=== PATIENT | female | born 1970 | race Caucasian/White ===

== ENCOUNTER 2017-02-05 10:08 | Inpatient (IN) ==
[2017-02-05] MEDS ORDERED: ONDANSETRON 4 MG/2 ML VIAL IV STA (10:41)
[2017-02-05] MEDS ORDERED: PANTOPRAZOLE 40 MG VIAL IV STA (10:41)
[2017-02-05] MEDS ORDERED: SODIUM CHLORIDE 0.9% 500 ML IV STA (10:41)
[2017-02-05] MEDS ORDERED: HYDROmorphone 2 MG/1 ML VIAL IV STA ×2 (10:41→13:33)
[2017-02-05] MEDS ORDERED: ONDANSETRON 4 MG/2 ML VIAL ONE (10:49)
[2017-02-05] MEDS ORDERED: HYDROmorphone 2 MG/1 ML VIAL ONE ×2 (10:50→13:27)
[2017-02-05 10:59] LABS: Basophils # 0.1 10*3/uL (0.0-0.2); Basophils % 0.4 % (0.0-0.8); Eosinophils # 0.1 10*3/uL (0.0-0.87); Eosinophils % 1.1 % (0.00-10.9); Hematocrit 42.8 VOL% (35.7-47.0); Hemoglobin 14.3 GM/DL (12.0-16.0); Immature Granulocytes % 0.4 %; Immature Granulocytes Absolute 0.05 #; Lymphocytes # 2.2 10*3/uL (1.4-4.0); Lymphocytes % 18.5 % (21.3-54.2); Mean Corpuscular HGB Conc 33.4 GM/DL (32-36); Mean Corpuscular Hemoglobin 28 PG (27-34); Mean Corpuscular Volume 82.9 FL (87-102); Mean Platelet Volume 10.7 FL (9.6-12.0); Monocytes # 0.5 10*3/uL (0.11-0.8); Monocytes % 4.2 % (1.7-12.7); Neutrophils # 8.9 10*3/uL (1.4-7.4); Neutrophils % 75.4 % (38.7-73.9); Platelet Count 303 T/CUMM (130-400); Red Blood Count 5.16 MC/CUMM (3.8-5.5); Red Cell Distribution Width 12.8 % (9.3-17.3); White Blood Count 11.8 T/CUMM (4-12)
[2017-02-05] MEDS ORDERED: PANTOPRAZOLE 40 MG VIAL IV ONE (11:13)
[2017-02-05 11:31] LABS: Lactic Acid 1.3 MMOL/L (0.4-2.0)
[2017-02-05 11:57] LABS: Alanine Aminotransferase 41 U/L (13-56); Albumin 3.9 G/DL (3.4-5.0); Alkaline Phosphatase 85 U/L (45-117); Amylase 24 U/L (25-115); Aspartate Amino Transferase 30 U/L (0-37); Blood Urea Nitrogen 8 MG/DL (7-18); Calcium 9.8 MG/DL (8.5-10.1); Glucose 118 MG/DL (74-106); Magnesium 1.9 MG/DL (1.8-2.4); Osmolality,Calculated 275.5 MOS/KG (273-304); Potassium 3.9 MMOL/L (3.5-5.1); Sodium 139 MMOL/L (136-145); Total Protein 7.5 G/DL (6.4-8.3); Troponin I Only < 0.015 NG/ML (0.00-0.045)
[2017-02-05] MEDS ORDERED: ACETAMINOPHEN 325 MG TABLET PO PRN (14:19)
[2017-02-05] MEDS ORDERED: INFLUENZA VIRUS VACCINE 0.5 ML SYRINGE IM ONE (15:03)
[2017-02-05] MEDS: MORPHINE 2 MG/1 ML SYRINGE IV PRN ×2 (17:28→21:15)
[2017-02-05] MEDS: ONDANSETRON 4 MG/2 ML VIAL IV PRN (17:29)
[2017-02-05] MEDS: LACTATED RINGERS 1,000 ML IV SCH (17:43)
[2017-02-05 21:26] LABS: Apearance,Urine CLEAR (Clear); Bacteria,Urine Occasional /HPF (Few); Bilirubin,Urine Negative (Negative); Blood, Urine Negative (Negative); Glucose,Urine (UA) Negative (Negative); Ketones,Urine Negative (Negative); Nitrite,Urine Negative (Negative); Protein,Urine Negative; RBC,Urine <1 /HPF (0-4); Squamous Epithelial Cell,Urine Occasional /HPF (0-10); Urine Color Straw (Yellow); Urine Specific Gravity 1.006 (1.001-1.035); Urine Urobilinogen < 2.0 EU/DL (0.2-1.0); WBC,Urine 2 /HPF (0-6)
[2017-02-06] MEDS: LACTATED RINGERS 1,000 ML IV SCH ×4 (01:24→16:50)
[2017-02-06 08:06] LABS: Calcium 8.8 MG/DL (8.5-10.1)
[2017-02-06 08:07] LABS: Osmolality,Calculated 280.1 MOS/KG (273-304); Potassium 3.8 MMOL/L (3.5-5.1)
[2017-02-06] MEDS: PANTOPRAZOLE 40 MG TABLET PO SCH (13:55)
[2017-02-06] MEDS: MORPHINE 2 MG/1 ML SYRINGE IV PRN ×2 (16:05→20:43)
[2017-02-06] MEDS: ONDANSETRON 4 MG/2 ML VIAL IV PRN (16:06)
[2017-02-06] MEDS: GABAPENTIN 100 MG CAPSULE PO SCH (20:37)
[2017-02-06] MEDS: DEXT 5% NACL 0.45% KCL 20 MEQ 20 MEQ/1,000 ML BAG IV SCH (20:44)
[2017-02-07] MEDS: MORPHINE 2 MG/1 ML SYRINGE IV PRN (02:32)
[2017-02-07] MEDS: DEXT 5% NACL 0.45% KCL 20 MEQ 20 MEQ/1,000 ML BAG IV SCH ×2 (04:20→09:12)
[2017-02-07] MEDS ORDERED: FAMOTIDINE 20 MG TABLET PO ONE (05:32)
[2017-02-07] MEDS ORDERED: DIAZEPAM 5 MG TABLET PO ONE (05:32)
[2017-02-07] MEDS ORDERED: cefOXitin 2,000 MG in SYRINGE 1 EACH IV ONE (06:00)
[2017-02-07 06:22] LABS: Basophils % 0.4 % (0.0-0.8); Eosinophils # 0.2 10*3/uL (0.0-0.87); Eosinophils % 2.6 % (0.00-10.9); Hematocrit 33.8 VOL% (35.7-47.0); Hemoglobin 11.1 GM/DL (12.0-16.0); Immature Granulocytes % 0.3 %; Immature Granulocytes Absolute 0.02 #; Lymphocytes # 2.9 10*3/uL (1.4-4.0); Lymphocytes % 35.8 % (21.3-54.2); Mean Corpuscular HGB Conc 32.8 GM/DL (32-36); Mean Corpuscular Hemoglobin 28 PG (27-34); Mean Corpuscular Volume 84.3 FL (87-102); Monocytes # 0.6 10*3/uL (0.11-0.8); Monocytes % 6.9 % (1.7-12.7); Neutrophils # 4.3 10*3/uL (1.4-7.4); Platelet Count 221 T/CUMM (130-400); Red Blood Count 4.01 MC/CUMM (3.8-5.5); Red Cell Distribution Width 12.7 % (9.3-17.3)
[2017-02-07 06:45] LABS: Calcium 8.5 MG/DL (8.5-10.1); Osmolality,Calculated 281.1 MOS/KG (273-304); Potassium 4.2 MMOL/L (3.5-5.1)
[2017-02-07] MEDS: NEBIVOLOL 10 MG TABLET PO SCH (09:11)
[2017-02-07] MEDS: VALSARTAN/HCTZ 160-12.5 MG TABLET PO SCH (09:11)
[2017-02-07] MEDS: PANTOPRAZOLE 40 MG TABLET PO SCH (09:12)
[2017-02-07] MEDS ORDERED: ceFAZolin 1,000 MG VIAL ONE (09:26)
[2017-02-07] MEDS ORDERED: LIDOCAINE 1%/EPI INJ 20 ML VIAL ONE (09:27)
[2017-02-07] MEDS ORDERED: VANCOMYCIN 1,000 MG VIAL ONE (10:29)
[2017-02-07] MEDS ORDERED: PROPOFOL 200 MG/20 ML VIAL IV ONE (11:44)
[2017-02-07] MEDS ORDERED: SEVOFLURANE 1 UNIT/15 MINUTE INH ONE ×2 (11:44→13:46)
[2017-02-07] MEDS ORDERED: HYDROmorphone 2 MG/1 ML VIAL ONE ×2 (11:44→14:05)
[2017-02-07] MEDS ORDERED: GLYCOPYRROLATE 0.4 MG/2 ML VIAL ONE (11:45)
[2017-02-07] MEDS ORDERED: fentaNYL 100 MCG/2 ML VIAL ONE (11:45)
[2017-02-07] MEDS ORDERED: KETOROLAC 30 MG/1 ML VIAL ONE (11:45)
[2017-02-07] MEDS ORDERED: KETAMINE 500 MG/10 ML VIAL ONE (11:45)
[2017-02-07] MEDS ORDERED: ONDANSETRON 4 MG/2 ML VIAL ONE ×2 (11:45→14:05)
[2017-02-07] MEDS ORDERED: DEXAMETHASONE 10 MG/1 ML VIAL ONE (11:45)
[2017-02-07] MEDS ORDERED: MIDAZOLAM 2 MG/2 ML VIAL ONE (11:45)
[2017-02-07] MEDS ORDERED: NEOSTIGMINE 10 MG/10 ML VIAL ONE (11:46)
[2017-02-07] MEDS ORDERED: ACETAMINOPHEN 1,000 MG/100 ML VIAL IV ONE (11:46)
[2017-02-07] MEDS ORDERED: ROCURONIUM 100 MG/10 ML VIAL IV ONE (11:46)
[2017-02-07] MEDS ORDERED: LACTATED RINGERS 1,000 ML IV ONE (11:48)
[2017-02-07] MEDS ORDERED: SODIUM CHLORIDE 0.9% 1,000 ML IV ONE (11:48)
[2017-02-07] MEDS ORDERED: ONDANSETRON 4 MG/2 ML VIAL IV PRN (14:03)
[2017-02-07] MEDS: HYDROmorphone 2 MG/1 ML VIAL IV PRN ×4 (14:05→14:20)
[2017-02-07 14:23] LABS: Hematocrit 34.5 VOL% (35.7-47.0); Hemoglobin 11.5 GM/DL (12.0-16.0)
[2017-02-07] MEDS: DEXTROSE 5% LACTATED RINGERS 1,000 ML IV SCH (14:58)
[2017-02-07] MEDS: MORPHINE PCA 30 MG/30 ML SYRINGE IV SCH (14:58)
[2017-02-07] MEDS: GABAPENTIN 100 MG CAPSULE PO SCH (20:21)
[2017-02-07 21:40] LABS: Hematocrit 34.8 VOL% (35.7-47.0); Hemoglobin 11.6 GM/DL (12.0-16.0)
[2017-02-08] MEDS: DEXTROSE 5% LACTATED RINGERS 1,000 ML IV SCH ×2 (01:46→15:41)
[2017-02-08 03:13] LABS: Basophils % 0.1 % (0.0-0.8); Hematocrit 33.5 VOL% (35.7-47.0); Hemoglobin 11.1 GM/DL (12.0-16.0); Immature Granulocytes % 0.9 %; Immature Granulocytes Absolute 0.14 #; Lymphocytes # 1.3 10*3/uL (1.4-4.0); Mean Corpuscular HGB Conc 33.1 GM/DL (32-36); Mean Corpuscular Hemoglobin 28 PG (27-34); Mean Corpuscular Volume 83.5 FL (87-102); Mean Platelet Volume 11.3 FL (9.6-12.0); Monocytes # 0.4 10*3/uL (0.11-0.8); Monocytes % 2.8 % (1.7-12.7); Neutrophils # 12.9 10*3/uL (1.4-7.4); Neutrophils % 87.2 % (38.7-73.9); Platelet Count 255 T/CUMM (130-400); Red Blood Count 4.01 MC/CUMM (3.8-5.5); Red Cell Distribution Width 12.6 % (9.3-17.3); White Blood Count 14.8 T/CUMM (4-12)
[2017-02-08 03:42] LABS: Albumin 2.8 G/DL (3.4-5.0); Bilirubin,Total 0.6 MG/DL (0.2-1.0); Calcium 8.9 MG/DL (8.5-10.1); Osmolality,Calculated 278.4 MOS/KG (273-304); Potassium 4.2 MMOL/L (3.5-5.1); Total Protein 5.7 G/DL (6.4-8.3)
[2017-02-08 05:52] LABS: Hematocrit 32.8 VOL% (35.7-47.0)
[2017-02-08] MEDS: PANTOPRAZOLE 40 MG TABLET PO SCH (09:18)
[2017-02-08] MEDS: VALSARTAN/HCTZ 160-12.5 MG TABLET PO SCH (09:18)
[2017-02-08] MEDS: NEBIVOLOL 10 MG TABLET PO SCH (09:18)
[2017-02-08] MEDS: MORPHINE PCA 30 MG/30 ML SYRINGE IV SCH ×2 (10:37→15:18)
[2017-02-08] MEDS: ENOXAPARIN 40 MG/0.4 ML SYRINGE SUBCUT SCH (15:26)
[2017-02-08] MEDS: GABAPENTIN 100 MG CAPSULE PO SCH (20:56)
[2017-02-09] MEDS: MORPHINE PCA 30 MG/30 ML SYRINGE IV SCH (06:26)
[2017-02-09] MEDS ORDERED: DEXTROSE 50% 25 GM/50 ML VIAL IV PRN (10:24)
[2017-02-09] MEDS ORDERED: GLUCAGON 1 MG VIAL IM PRN (10:24)
[2017-02-09] MEDS: NEBIVOLOL 10 MG TABLET PO SCH (11:11)
[2017-02-09] MEDS: VALSARTAN/HCTZ 160-12.5 MG TABLET PO SCH (11:11)
[2017-02-09] MEDS: PANTOPRAZOLE 40 MG TABLET PO SCH (11:11)
[2017-02-09] MEDS: INSULIN REGULAR 100 UNIT/ML SUBCUT SCH ×3 (11:30→20:44)
[2017-02-09] MEDS: GABAPENTIN 100 MG CAPSULE PO SCH (20:06)
[2017-02-09] MEDS: MORPHINE 2 MG/1 ML SYRINGE IV PRN (20:07)
[2017-02-10] MEDS: MORPHINE 2 MG/1 ML SYRINGE IV PRN ×4 (03:25→21:04)
[2017-02-10 07:11] LABS: Basophils # 0.1 10*3/uL (0.0-0.2); Basophils % 0.4 % (0.0-0.8); Eosinophils # 0.3 10*3/uL (0.0-0.87); Eosinophils % 2.5 % (0.00-10.9); Hematocrit 33.4 VOL% (35.7-47.0); Hemoglobin 11.1 GM/DL (12.0-16.0); Immature Granulocytes % 0.4 %; Immature Granulocytes Absolute 0.04 #; Lymphocytes # 2.4 10*3/uL (1.4-4.0); Lymphocytes % 21.7 % (21.3-54.2); Mean Corpuscular HGB Conc 33.2 GM/DL (32-36); Mean Corpuscular Hemoglobin 28 PG (27-34); Mean Corpuscular Volume 83.5 FL (87-102); Mean Platelet Volume 10.9 FL (9.6-12.0); Monocytes % 9.3 % (1.7-12.7); Neutrophils # 7.4 10*3/uL (1.4-7.4); Neutrophils % 65.7 % (38.7-73.9); Platelet Count 222 T/CUMM (130-400); Red Cell Distribution Width 12.9 % (9.3-17.3); White Blood Count 11.2 T/CUMM (4-12)
[2017-02-10] MEDS: INSULIN REGULAR 100 UNIT/ML SUBCUT SCH ×4 (07:24→21:47)
[2017-02-10] MEDS: PANTOPRAZOLE 40 MG TABLET PO SCH (08:36)
[2017-02-10] MEDS: VALSARTAN/HCTZ 160-12.5 MG TABLET PO SCH (08:36)
[2017-02-10] MEDS: NEBIVOLOL 10 MG TABLET PO SCH (08:36)
[2017-02-10] MEDS ORDERED: BISACODYL 10 MG SUPP RECTAL ONE (09:13)
[2017-02-10] MEDS: ENOXAPARIN 40 MG/0.4 ML SYRINGE SUBCUT SCH (15:31)
[2017-02-10] MEDS: GABAPENTIN 100 MG CAPSULE PO SCH (21:04)
[2017-02-11] MEDS: MORPHINE 2 MG/1 ML SYRINGE IV PRN (04:13)
[2017-02-11 06:23] LABS: Calcium 8.7 MG/DL (8.5-10.1); Osmolality,Calculated 274.5 MOS/KG (273-304); Potassium 3.7 MMOL/L (3.5-5.1)
[2017-02-11 07:55] VITALS: BP 113/65
[2017-02-11] MEDS: NEBIVOLOL 10 MG TABLET PO SCH (08:51)
[2017-02-11] MEDS: INSULIN REGULAR 100 UNIT/ML SUBCUT SCH ×2 (08:52→12:13)
[2017-02-11] MEDS: PANTOPRAZOLE 40 MG TABLET PO SCH (08:52)
[2017-02-11] MEDS: VALSARTAN/HCTZ 160-12.5 MG TABLET PO SCH (08:53)
== END 2017-02-11 11:34 | disposition home or self-care (01) | DRG 336 ==
LOC: N.ED 10:08 → N.EDINP 12:37 → N.3E 13:49
PROVIDERS: ADMIT Surgery; ATTEND Surgery

== ENCOUNTER 2017-02-17 14:12 | Inpatient (IN) ==
[2017-02-17] MEDS ORDERED: ONDANSETRON 4 MG/2 ML VIAL IV STA ×2 (16:06→17:50)
[2017-02-17] MEDS ORDERED: SODIUM CHLORIDE 0.9% 1,000 ML IV STA (16:06)
[2017-02-17] MEDS ORDERED: ONDANSETRON 4 MG/2 ML VIAL ONE ×3 (16:09→23:17)
[2017-02-17] MEDS ORDERED: HYDROmorphone 2 MG/1 ML VIAL IV STA ×2 (16:25→17:37)
[2017-02-17 16:27] LABS: Basophils # 0.1 10*3/uL (0.0-0.2); Basophils % 0.3 % (0.0-0.8); Eosinophils % 0.1 % (0.00-10.9); Hematocrit 42.9 VOL% (35.7-47.0); Hemoglobin 14.4 GM/DL (12.0-16.0); Immature Granulocytes % 0.4 %; Immature Granulocytes Absolute 0.08 #; Lymphocytes # 1.6 10*3/uL (1.4-4.0); Lymphocytes % 8.5 % (21.3-54.2); Mean Corpuscular HGB Conc 33.6 GM/DL (32-36); Mean Corpuscular Hemoglobin 28 PG (27-34); Mean Corpuscular Volume 83.5 FL (87-102); Mean Platelet Volume 10.8 FL (9.6-12.0); Monocytes # 0.8 10*3/uL (0.11-0.8); Monocytes % 4.3 % (1.7-12.7); Neutrophils # 16.3 10*3/uL (1.4-7.4); Neutrophils % 86.4 % (38.7-73.9); Platelet Count 532 T/CUMM (130-400); Red Blood Count 5.14 MC/CUMM (3.8-5.5); Red Cell Distribution Width 12.8 % (9.3-17.3); White Blood Count 18.9 T/CUMM (4-12)
[2017-02-17] MEDS ORDERED: HYDROmorphone 2 MG/1 ML VIAL ONE ×2 (16:28→17:40)
[2017-02-17 16:57] LABS: Lactic Acid 2.3 MMOL/L (0.4-2.0)
[2017-02-17 16:59] LABS: Alanine Aminotransferase 41 U/L (13-56); Albumin 3.7 G/DL (3.4-5.0); Alkaline Phosphatase 91 U/L (45-117); Aspartate Amino Transferase 26 U/L (0-37); Bilirubin,Total < 0.39 MG/DL (0.2-1.0); Blood Urea Nitrogen 10 MG/DL (7-18); Calcium 11.2 MG/DL (8.5-10.1); Glucose 180 MG/DL (74-106); Osmolality,Calculated 278.7 MOS/KG (273-304); Potassium 3.6 MMOL/L (3.5-5.1); Sodium 138 MMOL/L (136-145); Total Protein 8.9 G/DL (6.4-8.3)
[2017-02-17 17:25] LABS: Apearance,Urine Slightly Hazy (Clear); Bacteria,Urine Many /HPF (Few); Bilirubin,Urine Negative (Negative); Blood, Urine Negative (Negative); Glucose,Urine (UA) Negative (Negative); Ketones,Urine Negative (Negative); Mucus,Urine Few /LPF (Occasional); Nitrite,Urine Negative (Negative); Protein,Urine 30 MG/DL; RBC,Urine 2 /HPF (0-4); Squamous Epithelial Cell,Urine Occasional /HPF (0-10); Urine Color Yellow (Yellow); Urine Specific Gravity 1.021 (1.001-1.035); WBC,Urine 5 /HPF (0-6)
[2017-02-17] MEDS ORDERED: PIPERACILLIN/TAZOBACTAM 3,375 MG in SODIUM CHLORIDE 0.9% 100 ML IV STA (17:29)
[2017-02-17] MEDS ORDERED: PIPERACILLIN/TAZOBACTAM 3,375 MG VIAL IV ONE (17:36)
[2017-02-17] MEDS ORDERED: ACETAMINOPHEN 325 MG TABLET PO PRN (17:38)
[2017-02-17] MEDS ORDERED: ONDANSETRON 4 MG/2 ML VIAL IV PRN (17:38)
[2017-02-17] MEDS ORDERED: ALUMINUM/MAGNES/SIMETH MAX STR 30 ML UDCUP PO PRN (19:10)
[2017-02-17] MEDS: HYDROmorphone 2 MG/1 ML VIAL IV PRN ×2 (19:18→23:37)
[2017-02-17] MEDS ORDERED: INFLUENZA VIRUS VACCINE 0.5 ML SYRINGE IM ONE (19:37)
[2017-02-17] MEDS: PIPERACILLIN/TAZOBACTAM 3,375 MG in SODIUM CHLORIDE 0.9% 100 ML IV SCH (20:03)
[2017-02-17] MEDS ORDERED: VANCOMYCIN 1,000 MG VIAL ONE (20:41)
[2017-02-17] MEDS: DEXTROSE 5% LACTATED RINGERS 1,000 ML IV SCH ×2 (22:45→23:38)
[2017-02-17] MEDS ORDERED: PROPOFOL 1,000 MG/100 ML BOTTLE IV ONE (22:48)
[2017-02-17] MEDS ORDERED: SEVOFLURANE 1 UNIT/15 MINUTE INH ONE (23:16)
[2017-02-17] MEDS ORDERED: PROPOFOL 200 MG/20 ML VIAL IV ONE (23:16)
[2017-02-17] MEDS ORDERED: PHENYLEPHRINE DRIP 20 MG/250 ML PREMIX IV ONE (23:16)
[2017-02-17 23:17] LABS: Apearance,Urine CLEAR (Clear); Bilirubin,Urine Negative (Negative); Blood, Urine Negative (Negative); Glucose,Urine (UA) Negative (Negative); Ketones,Urine Negative (Negative); Mucus,Urine Occasional /LPF (Occasional); Nitrite,Urine Negative (Negative); Protein,Urine Negative; RBC,Urine 2 /HPF (0-4); Squamous Epithelial Cell,Urine Occasional /HPF (0-10); Urine Color Yellow (Yellow); Urine Specific Gravity > 1.060 (1.001-1.035); Urine Urobilinogen < 2.0 EU/DL (0.2-1.0)
[2017-02-17] MEDS ORDERED: fentaNYL 100 MCG/2 ML VIAL ONE (23:17)
[2017-02-17] MEDS ORDERED: MIDAZOLAM 2 MG/2 ML VIAL ONE (23:17)
[2017-02-17] MEDS ORDERED: SUCCINYLCHOLINE 200 MG/10 ML VIAL ONE (23:18)
[2017-02-17] MEDS ORDERED: ALBUMIN 5% 12.5 GM/250 ML VIAL IV ONE (23:18)
[2017-02-17] MEDS ORDERED: ACETAMINOPHEN 1,000 MG/100 ML VIAL IV ONE (23:18)
[2017-02-17] MEDS ORDERED: ROCURONIUM 100 MG/10 ML VIAL IV ONE (23:18)
[2017-02-17] MEDS: PROPOFOL 1,000 MG/100 ML BOTTLE IV SCH (23:32)
[2017-02-18 00:29] LABS: ABG Base Excess 2.9 MMOL/L (-2.5-2.5); ABG HCO3 27.1 MMOL/L (20-26); ABG Oxygen Saturation 96.9 % (95-100); ABG PCO2 40.1 MM HG (35-48); ABG PH 7.447 (7.35-7.45); ABG TCO2 28.3 MMOL/L (23-27)
[2017-02-18] MEDS: PROPOFOL 1,000 MG/100 ML BOTTLE IV SCH ×2 (01:33→04:36)
[2017-02-18] MEDS: PIPERACILLIN/TAZOBACTAM 3,375 MG in SODIUM CHLORIDE 0.9% 100 ML IV SCH ×3 (03:12→17:45)
[2017-02-18] MEDS: DEXTROSE 5% LACTATED RINGERS 1,000 ML IV SCH ×6 (03:13→23:19)
[2017-02-18] MEDS: HYDROmorphone 2 MG/1 ML VIAL IV PRN ×8 (03:29→22:20)
[2017-02-18 04:11] LABS: ABG Base Excess 4.1 MMOL/L (-2.5-2.5); ABG HCO3 28.1 MMOL/L (20-26); ABG Oxygen Saturation 98.9 % (95-100); ABG PCO2 37.6 MM HG (35-48); ABG PH 7.476 (7.35-7.45); ABG TCO2 24.1 MMOL/L (23-27)
[2017-02-18 06:01] LABS: Hematocrit 38.5 VOL% (35.7-47.0); Hemoglobin 12.6 GM/DL (12.0-16.0); Lymphocytes % 14.5 % (21.3-54.2); Mean Corpuscular HGB Conc 32.7 GM/DL (32-36); Mean Corpuscular Hemoglobin 28 PG (27-34); Mean Corpuscular Volume 83.9 FL (87-102); Neutrophils % 73.6 % (38.7-73.9); Platelet Count 492 T/CUMM (130-400); Red Blood Count 4.59 MC/CUMM (3.8-5.5); Red Cell Distribution Width 13.2 % (9.3-17.3); White Blood Count 9.7 T/CUMM (4-12)
[2017-02-18 06:02] LABS: Basophils % 0.4 % (0.0-0.8); Eosinophils % 0.1 % (0.00-10.9); Immature Granulocytes % 0.2 %; Immature Granulocytes Absolute 0.02 #; Lymphocytes # 1.4 10*3/uL (1.4-4.0); Monocytes # 1.1 10*3/uL (0.11-0.8); Monocytes % 11.2 % (1.7-12.7); Neutrophils # 7.1 10*3/uL (1.4-7.4)
[2017-02-18 06:29] LABS: Band Neutrophils 12 % (0-10); Giant Platelets Few; Hypochromasia 1+; Lymphocytes 14 % (20-55); Ovalocytes Slight; Platelet Estimate Adequate; Segmented Neutrophils 61 % (50-85); Total Cells Counted 100
[2017-02-18 06:32] LABS: Calcium 9.1 MG/DL (8.5-10.1); Osmolality,Calculated 283.4 MOS/KG (273-304); Potassium 4.5 MMOL/L (3.5-5.1)
[2017-02-18] MEDS ORDERED: PANTOPRAZOLE 40 MG TABLET PO SCH (09:00)
[2017-02-18 09:03] LABS: Allen Test Positive
[2017-02-18 09:05] LABS: ABG Base Excess 4.8 MMOL/L (-2.5-2.5); ABG HCO3 28.6 MMOL/L (20-26); ABG Oxygen Saturation 96.9 % (95-100); ABG PCO2 39.4 MM HG (35-48); ABG PH 7.479 (7.35-7.45); ABG TCO2 29.8 MMOL/L (23-27)
[2017-02-18] MEDS ORDERED: ALBUTEROL/IPRATROPIUM 3 ML NEB RESP TX PRN ×2 (09:17→10:47)
[2017-02-18 10:10] LABS: Allen Test Positive
[2017-02-18 10:11] LABS: ABG Base Excess 4.7 MMOL/L (-2.5-2.5); ABG HCO3 28.6 MMOL/L (20-26); ABG Oxygen Saturation 96.3 % (95-100); ABG PCO2 38.9 MM HG (35-48); ABG PH 7.473 (7.35-7.45); ABG TCO2 24.9 MMOL/L (23-27)
[2017-02-18] MEDS: PANTOPRAZOLE 40 MG VIAL IV SCH (10:29)
[2017-02-18] MEDS: ENOXAPARIN 40 MG/0.4 ML SYRINGE SUBCUT SCH (10:49)
[2017-02-18] MEDS: ALBUTEROL/IPRATROPIUM 3 ML NEB RESP TX SCH ×2 (12:31→18:54)
[2017-02-19] MEDS: ALBUTEROL/IPRATROPIUM 3 ML NEB RESP TX SCH ×4 (00:03→19:40)
[2017-02-19] MEDS: PIPERACILLIN/TAZOBACTAM 3,375 MG in SODIUM CHLORIDE 0.9% 100 ML IV SCH ×3 (01:33→18:26)
[2017-02-19] MEDS: HYDROmorphone 2 MG/1 ML VIAL IV PRN ×9 (01:33→23:33)
[2017-02-19 02:19] LABS: Basophils # 0.1 10*3/uL (0.0-0.2); Basophils % 0.6 % (0.0-0.8); Eosinophils # 0.1 10*3/uL (0.0-0.87); Eosinophils % 0.7 % (0.00-10.9); Hemoglobin 11.2 GM/DL (12.0-16.0); Immature Granulocytes % 0.3 %; Immature Granulocytes Absolute 0.03 #; Lymphocytes # 2.1 10*3/uL (1.4-4.0); Lymphocytes % 20.8 % (21.3-54.2); Mean Corpuscular Hemoglobin 27 PG (27-34); Mean Corpuscular Volume 85.6 FL (87-102); Mean Platelet Volume 10.8 FL (9.6-12.0); Monocytes # 1.4 10*3/uL (0.11-0.8); Monocytes % 13.4 % (1.7-12.7); Neutrophils # 6.5 10*3/uL (1.4-7.4); Neutrophils % 64.2 % (38.7-73.9); Platelet Count 420 T/CUMM (130-400); Red Blood Count 4.09 MC/CUMM (3.8-5.5); Red Cell Distribution Width 13.4 % (9.3-17.3); White Blood Count 10.1 T/CUMM (4-12)
[2017-02-19 02:43] LABS: Calcium 8.4 MG/DL (8.5-10.1); Osmolality,Calculated 288.8 MOS/KG (273-304); Potassium 3.7 MMOL/L (3.5-5.1)
[2017-02-19] MEDS: DEXTROSE 5% LACTATED RINGERS 1,000 ML IV SCH ×4 (06:44→18:28)
[2017-02-19 07:24] LABS: Calcium 8.4 MG/DL (8.5-10.1); Osmolality,Calculated 288.7 MOS/KG (273-304); Potassium 3.7 MMOL/L (3.5-5.1)
[2017-02-19] MEDS: PANTOPRAZOLE 40 MG VIAL IV SCH (09:01)
[2017-02-19] MEDS: ENOXAPARIN 40 MG/0.4 ML SYRINGE SUBCUT SCH (10:49)
[2017-02-20] MEDS: ALBUTEROL/IPRATROPIUM 3 ML NEB RESP TX SCH ×4 (00:53→19:50)
[2017-02-20] MEDS: PIPERACILLIN/TAZOBACTAM 3,375 MG in SODIUM CHLORIDE 0.9% 100 ML IV SCH ×3 (01:20→18:01)
[2017-02-20] MEDS: DEXTROSE 5% LACTATED RINGERS 1,000 ML IV SCH ×3 (01:20→18:27)
[2017-02-20] MEDS: HYDROmorphone 2 MG/1 ML VIAL IV PRN ×7 (01:29→21:37)
[2017-02-20 04:28] LABS: Basophils # 0.1 10*3/uL (0.0-0.2); Basophils % 0.6 % (0.0-0.8); Eosinophils # 0.3 10*3/uL (0.0-0.87); Eosinophils % 3.2 % (0.00-10.9); Hematocrit 30.8 VOL% (35.7-47.0); Hemoglobin 9.6 GM/DL (12.0-16.0); Immature Granulocytes % 0.3 %; Immature Granulocytes Absolute 0.03 #; Lymphocytes % 19.3 % (21.3-54.2); Mean Corpuscular HGB Conc 31.2 GM/DL (32-36); Mean Corpuscular Hemoglobin 27 PG (27-34); Mean Platelet Volume 10.9 FL (9.6-12.0); Neutrophils % 66.6 % (38.7-73.9); Platelet Count 331 T/CUMM (130-400); Red Blood Count 3.54 MC/CUMM (3.8-5.5); Red Cell Distribution Width 13.1 % (9.3-17.3); White Blood Count 10.4 T/CUMM (4-12)
[2017-02-20 05:00] LABS: Calcium 8.3 MG/DL (8.5-10.1); Osmolality,Calculated 284.8 MOS/KG (273-304); Potassium 3.5 MMOL/L (3.5-5.1)
[2017-02-20] MEDS: PANTOPRAZOLE 40 MG VIAL IV SCH (11:08)
[2017-02-20] MEDS: ENOXAPARIN 40 MG/0.4 ML SYRINGE SUBCUT SCH (11:14)
[2017-02-21] MEDS: HYDROmorphone 2 MG/1 ML VIAL IV PRN ×8 (01:07→22:40)
[2017-02-21] MEDS: PIPERACILLIN/TAZOBACTAM 3,375 MG in SODIUM CHLORIDE 0.9% 100 ML IV SCH ×3 (01:13→17:54)
[2017-02-21] MEDS: ALBUTEROL/IPRATROPIUM 3 ML NEB RESP TX SCH ×4 (02:02→19:25)
[2017-02-21] MEDS: DEXTROSE 5% LACTATED RINGERS 1,000 ML IV SCH ×3 (03:25→17:52)
[2017-02-21] MEDS: PANTOPRAZOLE 40 MG VIAL IV SCH (09:06)
[2017-02-21] MEDS: ENOXAPARIN 40 MG/0.4 ML SYRINGE SUBCUT SCH (11:45)
[2017-02-22] MEDS: HYDROmorphone 2 MG/1 ML VIAL IV PRN ×4 (00:47→10:21)
[2017-02-22] MEDS: ALBUTEROL/IPRATROPIUM 3 ML NEB RESP TX SCH ×3 (01:05→12:48)
[2017-02-22] MEDS: PIPERACILLIN/TAZOBACTAM 3,375 MG in SODIUM CHLORIDE 0.9% 100 ML IV SCH ×2 (01:25→10:25)
[2017-02-22] MEDS: DEXTROSE 5% LACTATED RINGERS 1,000 ML IV SCH ×2 (01:25→12:06)
[2017-02-22] MEDS: PANTOPRAZOLE 40 MG VIAL IV SCH (10:18)
[2017-02-22 12:18] VITALS: BP 154/70
[2017-02-22] MEDS: ENOXAPARIN 40 MG/0.4 ML SYRINGE SUBCUT SCH (12:37)
== END 2017-02-22 16:00 | disposition home or self-care (01) | DRG 908 ==
LOC: N.ED 14:12 → N.EDINP 17:38 → N.3E 18:47 → N.CVR 22:00 → N.ICU 02-18 17:36 → N.3E 02-19 11:08
PROVIDERS: ADMIT Surgery; ATTEND Surgery